=== PATIENT | female | born 1980 | race Caucasian/White ===

== ENCOUNTER 2019-02-24 17:16 | Emergency (ER) | payer MEDICAID, OTHER ==
[~2019-02-24] VITALS: Ht 172.7 cm; Wt 81.6 kg
[~2019-02-24 17:16] MED LIST: CYCLOBENZAPRINE10 MG ORAL; IBUPROFEN600 MG ORAL; NORCO 5-325 TA1 EACH ORAL; PENICILLIN V P500 MG ORAL
[2019-02-24] MEDS ORDERED: XANAX2 MG ORAL (17:24)
[2019-02-24 17:30] VITALS: BP 128/76
--- NOTE | 2019-02-24 17:30 | NUR ---
ED Nurse Note: pt walked in to ED due to lower abdominal pain with vaginal bleeding for 7 days. per pt, needs to change regular pad every couple hrs. pt seen by planned parentshood and referred to ED due to they can not find any cause. AAO x4. respirations even and non-labored noted. skin warm to touch. no open wound noted. ambulatory with steady gait. will wait for the result.
--- NOTE | 2019-02-24 17:37 | Emergency Room Report ---
History of Present Illness General Chief Complaint: Pelvic Pain Source: Patient, Medical Record Present Illness HPI 38-year-old female presents to the emergency department complaining of 10 out of 10 in severity uterine cramping with vaginal bleeding 7 days. Patient also reports some right adnexal tenderness as well. Patient reports she has been having several loose bowel movements. Patient states she has IUD in place which she states is the Mirena and it was placed in 2013. Patient states that she does not have her menses due to IUD. Patient reports multiple previous pregnancies but only one delivery in the past. Patient denies history of STDs. Patient denies rashes or genital lesions she denies vaginal discharge other than bleeding. Patient states that she is sexually active and has unprotected intercourse she states that lately she has been having a lot of tenderness with intercourse. Patient denies fevers or chills nausea vomiting urinary frequency , urgency or hematuria. Allergies: Coded Allergies: SULFAMETHOXAZOLE (Unverified Allergy, Unknown, rash, 04/30/14) TRIMETHOPRIM (Unverified Allergy, Unknown, rash, 04/30/14) Patient History Past Medical History: see triage record Past Surgical History: none Pertinent Family History: none Last Menstrual Period: 02/17/19 Now: No Reviewed Nursing Documentation: PMH: Agreed; PSxH: Agreed Nursing Documentation-PMH Past Medical History: No History, Except For Review of Systems All Other Systems: negative except mentioned in HPI Physical Exam Vital Signs Date Time Temp Pulse Resp B/P (MAP) Pulse Ox O2 Delivery O2 Flow Rate FiO2 02/24/19 17:19 97.5 100 21 128/76 99 Room Air Sp02 EP Interpretation: reviewed, normal General Appearance: alert, GCS 15, non-toxic, moderate distress Head: normocephalic, atraumatic Eyes: bilateral eye normal inspection, bilateral eye PERRL ENT: hearing grossly normal, normal voice Neck: full range of motion Respiratory: chest non-tender, lungs clear, normal breath sounds, speaking full sentences Cardiovascular #1: regular rate, rhythm Gastrointestinal: normal bowel sounds, soft, no peritonitis, non-distended, no guarding, no hernia, tenderness - low midline abdomen, some left adnexal ttp. , other - NO RLQ Pain, TTP lower midline Genitourinary: normal inspection, no CVA tenderness, other - Right Adnexal TTP , some cervical tenderness. Musculoskeletal: back normal, gait/station normal, normal range of motion, non- tender Neurologic: alert, oriented x3, responsive, motor strength/tone normal, sensory intact, speech normal, grossly normal Psychiatric: judgement/insight normal Skin: normal color, no rash, warm/dry, well hydrated Lymphatic: no adenopathy Medical Decision Making PA Attestation Dr. Jones is my supervising Physician whom patient management has been discussed with. Diagnostic Impression: Primary Impression: Abnormal vaginal bleeding Additional Impressions: Abdominal pain Qualified Codes: R10.30 - Lower abdominal pain, unspecified UTI (urinary tract infection) Qualified Codes: N30.01 - Acute cystitis with hematuria Pelvic pain ER Course 38-year-old female presents to the emergency department complaining of 10 out of 10 in severity uterine cramping with vaginal bleeding 7 days. Patient also reports some right adnexal tenderness as well. Patient reports she has been having several loose bowel movements. Patient states she has IUD in place which she states is the Mirena and it was placed in 2013. Patient states that she does not have her menses due to IUD. Patient reports multiple previous pregnancies but only one delivery in the past. Patient denies history of STDs. Patient denies rashes or genital lesions she denies vaginal discharge other than bleeding. Patient states that she is sexually active and has unprotected intercourse she states that lately she has been having a lot of tenderness with intercourse. Patient denies fevers or chills nausea vomiting urinary frequency , urgency or hematuria. Ddx considered but are not limited to Diverticulitis, acute appy, ovarian torsion, ectopic , PID tubo-ovarian abscess, ovarian cyst. Vital signs: are WNL, pt. is afebrile H&PE are most consistent with possible ovarian cyst, however due to presentation will r/o torsion, ectopic, and stone. ORDERS: -CBC, CMP: unremarkable -UDS: positive for THC, Benzo's, and meth. -UA: positive for infection -- elevated inflammatory markers with mucus. -URINE HCG: negative -Pelvic US Complete: left ovarian cyst, some mild free fluid -- Per official radiology report- Please see report for specific details. -CT Abdomen/ Pelvis with contrast: ED INTERVENTIONS: - 20mg Toradol IV - 5mg [place] PO --as workup here in the emergency department was for the most part benign due to significant tenderness and history of unprotected intercourse with pain during intercourse we'll treat this patient for suspected PID. CURES REPORT: multiple recent fills for benzo's by [facility] ED provider in excessive quantities that are not customarily rx'd in the ED setting. according to our records pt. has not been to this facility since 2015. ED Physician Dr. Scott was contacted regarding suspicious prescriptions. This pt. was not rx'd the medications for which she filled on 02/07/19, and 01/14/19. [employer] was contacted regarding fraudulent prescriptions. This pt. admitted in triage to be currently rx'd xanax. -I do not identify an emergent condition at this time. With current presentation , pt. is stable for close outpatient follow up and conservative treatment. D/ w pt. to return promptly to ED with worsening or new symptoms.- Pt. verbalizes' understanding and agreement with proposed treatment plan.proposed treatment plan. DISCHARGE: At this time pt. is stable for d/c to home. Will provide printed patient care instructions, and any necessary prescriptions. Care plan and follow up instructions have been discussed with the patient prior to discharge. Labs Test 02/24/19 17:51 White Blood Count 14.7 K/UL (4.8-10.8) Red Blood Count 3.76 M/UL (4.20-5.40) Hemoglobin 11.1 G/DL (12.0-16.0) Hematocrit 33.4 % (37.0-47.0) Mean Corpuscular Volume 89 FL (80-99) Mean Corpuscular Hemoglobin 29.5 PG (27.0-31.0) Mean Corpuscular Hemoglobin Concent 33.3 G/DL (32.0-36.0) Red Cell Distribution Width 11.2 % (11.6-14.8) Platelet Count 334 K/UL (150-450) Mean Platelet Volume 4.3 FL (6.5-10.1) Neutrophils (%) (Auto) 73.9 % (45.0-75.0) Lymphocytes (%) (Auto) 15.8 % (20.0-45.0) Monocytes (%) (Auto) 8.1 % (1.0-10.0) Eosinophils (%) (Auto) 1.5 % (0.0-3.0) Basophils (%) (Auto) 0.6 % (0.0-2.0) Urine Color Yellow Urine Appearance Slightly cloudy Urine pH 5 (4.5-8.0) Urine Specific [place] 1.020 (1.005-1.035) Urine Protein 1+ (NEGATIVE) Urine Glucose (UA) Negative (NEGATIVE) Urine Ketones 1+ (NEGATIVE) Urine Blood 5+ (NEGATIVE) Urine Nitrite Negative (NEGATIVE) Urine Bilirubin Negative (NEGATIVE) Urine Urobilinogen 1 MG/DL (0.0-1.0) Urine Leukocyte Esterase 3+ (NEGATIVE) Urine RBC 10-15 /HPF (0 - 2) Urine WBC 10-15 /HPF (0 - 2) Urine Squamous Epithelial Cells Few /LPF (NONE/OCC) Urine Bacteria Few /HPF (NONE) Urine Mucus Moderate /LPF (NONE/OCC) Urine HCG, Qualitative Negative (NEGATIVE) Sodium Level 136 MMOL/L (136-145) Potassium Level 3.7 MMOL/L (3.5-5.1) Chloride Level 100 MMOL/L (98-107) Carbon Dioxide Level 24 MMOL/L (21-32) Anion Gap 12 mmol/L (5-15) Blood Urea Nitrogen 12 mg/dL (7-18) Creatinine 0.7 MG/DL (0.55-1.30) Estimat Glomerular Filtration Rate > 60 mL/min (>60) Glucose Level 118 MG/DL (74-106) Calcium Level 9.3 MG/DL (8.5-10.1) Total Bilirubin 0.3 MG/DL (0.2-1.0) Aspartate Amino Transf (AST/SGOT) 14 U/L (15-37) Alanine Aminotransferase (ALT/SGPT) 22 U/L (12-78) Alkaline Phosphatase 79 U/L (46-116) Total Protein 7.6 G/DL (6.4-8.2) Albumin 3.0 G/DL (3.4-5.0) Globulin 4.6 g/dL Albumin/Globulin Ratio 0.7 (1.0-2.7) Urine Opiates Screen Negative (NEGATIVE) Urine Barbiturates Screen Negative (NEGATIVE) Phencyclidine (PCP) Screen Negative (NEGATIVE) Urine Amphetamines Screen Positive (NEGATIVE) Urine Benzodiazepines Screen Positive (NEGATIVE) Urine Cocaine Screen Negative (NEGATIVE) Urine Marijuana (THC) Screen Positive (NEGATIVE) CT/MRI/US Diagnostic Results CT/MRI/US Diagnostic Results #1: Imaging Test Ordered: CT ABDOMEN and PELVIS W. CONTRAST Impression IUD within the uterus no acute process and the solid organs left adrenal nodule measuring 9 mm, left ovarian hemorrhagic cyst 3.3 cm and a normal appendix" Per official radiology report- Please see report for specific details. CT/MRI/US Diagnostic Results #2: Imaging Test Ordered: PELVIC US Impression 3.2 cm left ovarian cyst with some free fluid noted. --Per official radiology report- Please see report for specific details. Last Vital Signs Date Time Temp Pulse Resp B/P (MAP) Pulse Ox O2 Delivery O2 Flow Rate FiO2 02/24/19 17:19 97.5 100 21 128/76 99 Room Air Disposition: HOME, SELF-CARE Condition: Stable Scripts Ibuprofen* (MOTRIN*) 600 Mg Tablet 600 MG ORAL THREE TIMES A DAY, #30 TAB 0 Refills Prov: Regina Bond 02/24/19 Nitrofurantoin Monohyd/M-Cryst* (MACROBID 100 MG*) 100 Mg Capsule 100 MG ORAL EVERY 12 HOURS for 5 Days, #10 CAP Prov: Regina Bond 02/24/19 Doxycycline Hyclate* (VIBRAMYCIN*) 100 Mg Capsule 100 MG ORAL EVERY 12 HOURS for 14 Days, #28 CAP 0 Refills Prov: Regina Bond 02/24/19 Regina Bond Feb 24, 2019 17:37
[2019-02-24] MEDS ORDERED: Ketorolac 30mg Inj IV ONE (18:00)
[2019-02-24 18:07] LABS: APPEARANCE,URINE SLIGHTLY CLOUDY; BILIRUBIN, URINE NEGATIVE (NEGATIVE); GLUCOSE, URINE (UA) NEGATIVE (NEGATIVE); KETONES,URINE 1+ (NEGATIVE); LEUKOCYTE ESTERASE ,URINE 3+ (NEGATIVE); NITRITE,URINE NEGATIVE (NEGATIVE); PH,URINE 5 (4.5-8.0); PROTEIN,URINE 1+ (NEGATIVE); UROBILINOGEN,URINE 1 MG/DL (0.0-1.0)
[2019-02-24 18:10] LABS: BASOPHILS % (AUTO) 0.6 % (0.0-2.0); EOSINOPHILS % (AUTO) 1.5 % (0.0-3.0); HEMATOCRIT 33.4 % (37.0-47.0); HEMOGLOBIN 11.1 G/DL (12.0-16.0); LYMPHOCYTES % (AUTO) 15.8 % (20.0-45.0); MEAN CORPUSCULAR VOLUME 89 FL (80-99); MONOCYTES % (AUTO) 8.1 % (1.0-10.0); NEUTROPHILS % (AUTO) 73.9 % (45.0-75.0); PLATELET COUNT 334 K/UL (150-450); RED BLOOD COUNT 3.76 M/UL (4.20-5.40); RED CELL DISTRIBUTION WIDTH 11.2 % (11.6-14.8); WHITE BLOOD COUNT 14.7 K/UL (4.8-10.8)
[2019-02-24 18:12] LABS: COLOR,URINE YELLOW
[2019-02-24 18:28] LABS: ANION GAP 12 mmol/L (5-15); BLOOD UREA NITROGEN 12 mg/dL (7-18); CALCIUM 9.3 MG/DL (8.5-10.1); CARBON DIOXIDE 24 MMOL/L (21-32); CHLORIDE 100 MMOL/L (98-107); CREATININE 0.7 MG/DL (0.55-1.30); POTASSIUM 3.7 MMOL/L (3.5-5.1); SODIUM 136 MMOL/L (136-145)
[2019-02-24 18:33] LABS: ALANINE AMINOTRANSFERASE 22 U/L (12-78); ALBUMIN/GLOBULIN RATIO 0.7 (1.0-2.7); ALKALINE PHOSPHATASE 79 U/L (46-116); ASPARTATE AMINO TRANSFERASE 14 U/L (15-37); BILIRUBIN,TOTAL 0.3 MG/DL (0.2-1.0)
--- NOTE | 2019-02-24 18:33 | NUR ---
ED Nurse Note: PT went down for US.
--- NOTE | 2019-02-24 19:00 | NUR ---
HAND-OFF: Report given to Romain Triplett RN.
--- NOTE | 2019-02-24 19:00 | NUR ---
ED Nurse Note: RECEIVED REPORT FROM ELIZABETH JACKSON. PATIENT DOWN IN US.
--- NOTE | 2019-02-24 19:44 | NUR ---
ED Nurse Note: PT BACK FROM US. AO4. NAD. VSS
[2019-02-24] MEDS ORDERED: Isovue-300 100ml vial INJ PRN (20:00)
--- NOTE | 2019-02-24 21:20 | NUR ---
ED Nurse Note: Spoke with [employer] Manager [phone] - will send a unit out.
--- NOTE | 2019-02-24 21:30 | NUR ---
ED Nurse Note: [employer] Officer Mounika ([id number]) speaking with ALMAS Tapia.
[2019-02-24] MEDS ORDERED: VIBRAMYCIN100 MG ORAL (22:00)
[2019-02-24] MEDS ORDERED: NITROFURANTOIN100 M2 ORAL (22:00)
[2019-02-24] MEDS ORDERED: IBUPROFEN600 MG ORAL (22:00)
[2019-02-24] MEDS ORDERED: Lidocaine 1% MPF 10mg/ml 5ml INJ ONE (22:00)
[2019-02-24 23:00] VITALS: BP 128/76
--- NOTE | 2019-02-24 23:00 | NUR ---
ER DISCHARGE NOTE: Patient is cleared to be discharged per ERMD, pt is aox4, on room air, with stable vital signs. pt was given dc and prescription instructions, pt was able to verbalize understanding, pt id band and iv site removed without complications. pt is able to ambulate with steady gait. pt took all belongings.
--- NOTE | 2019-02-25 10:16 | Diagnostic Imaging Report ---
Clinical Indication: Pain, uterine cramping, vaginal bleeding x7 days Technique: No oral contrast utilized, per emergency room physician request IV administration nonionic contrast. Venous phase spiral acquisition obtained through the abdomen and pelvis. Multiplanar reconstructions were generated. Total dose length product 779.27 mGycm. CTDIvol(s) 15.03 mGy. Dose reduction achieved using automated exposure control Comparison: none. Reference made to pelvic ultrasound performed immediately prior Findings: The appendix is normal. There is suggestion of very slight inflammation of the right lower quadrant fat and possible mild wall thickening of the distal ileum. No evidence of diverticulosis. There is some wall thickening of the mid sigmoid colon as well as some inflammation of the perisigmoid fat. There is trace free pelvic fluid. No free or loculated intraperitoneal gas. There is a tiny fat-containing umbilical hernia. Distal esophagus, stomach, duodenum are unremarkable. The gallbladder is nondistended. The bile ducts are normal in caliber. The pancreas, spleen, adrenals, kidneys are unremarkable. No retroperitoneal or mesenteric mass or adenopathy. The uterus contains an intrauterine device in good position. There is a 3.2 cm cyst in the left ovary, also described on recent sonogram. The right ovary is demonstrates what appears to be a collapsed corpus luteum.. The included lung bases are clear. The bones demonstrate minimal degenerative spondylosis changes. Impression: Possible collapsed right ovarian corpus luteum Left ovarian cyst, corresponding to hemorrhagic cyst described on recent sonogram Small amount of free pelvic fluid, presumably related to the above Slight inflammatory change of the right lower quadrant fat, could be related to the above findings, but there is equivocal wall thickening of the small bowel and mild enteritis changes are also possible. Equivocal wall thickening and sigmoid colon is probably due to nondistention but focal colitis possible Intrauterine device This agrees with the preliminary interpretation provided overnight by [employer] teleradiology service, with minor variation. The CT scanner at [facility] is accredited by the [employer] and the scans are performed using protocols designed to limit radiation exposure to as low as reasonably achievable to attain images of sufficient resolution adequate for diagnostic evaluation.
--- NOTE | 2019-02-25 12:49 | Diagnostic Imaging Report ---
Indication: Right adnexal pain, negative test Technique: Transabdominal and transvaginal images. Doppler interrogation of the bilateral ovaries Comparison: none Findings: Uterus measures 8.5 cm length by 3.6 cm AP. Endometrium measures 12 mm thick. There is an intrauterine device in the appropriate position. No myometrial abnormality. Right ovary measures 3.5 cm in length. Left ovary measures 5.2 cm in length. Left ovary demonstrates a 3.3 cm cyst with low level internal echoes, likely hemorrhagic, cyst contours appearing slightly collapsed. There is a small amount of free cul-de-sac fluid Impression: Hemorrhagic left ovarian cyst. Intrauterine device Trace free pelvic fluid, presumably physiologic This agrees with the preliminary interpretation provided overnight by [employer] teleradiology service.
== END 2019-02-24 23:00 | disposition home or self-care (01) ==
LOC: EMR 19:17
DX: N93.9 Abnormal uterine and vaginal bleeding, unspecified (principal); R10.30 Lower abdominal pain, unspecified; N30.01 Acute cystitis with hematuria; R10.2 Pelvic and perineal pain; Z88.2 Allergy status to sulfonamides; Z88.8 Allergy status to other drugs, medicaments and biological substances; Z97.5 Presence of (intrauterine) contraceptive device; N83.202 Unspecified ovarian cyst, left side
CPT/HCPCS: 36415; 74177; 76830; 76856; 80053; 80307; 81003; 81025; 85025; 87086; 96372; 96374; 96375; 99284; J0696; J1885; Q9967

== ENCOUNTER 2020-03-13 18:28 | Emergency (ER) | payer MEDICAID, OTHER ==
[~2020-03-13] VITALS: Ht 172.7 cm; Wt 81.6 kg
[~2020-03-13 18:28] MED LIST changes: +NITROFURANTOIN100 M2 ORAL; +VIBRAMYCIN100 MG ORAL; +XANAX2 MG ORAL
[2020-03-13 18:37] VITALS: BP 122/74
--- NOTE | 2020-03-13 18:47 | NUR ---
ED Nurse Note: Pt from home came in due to swelling and redness on her left hand since yesterday. Noted a russ/bite on left hand. AAO x4 and ambulatory.
--- NOTE | 2020-03-13 18:53 | Emergency Room Report ---
History of Present Illness General Chief Complaint: Skin Rash/Abscess Source: Patient Present Illness HPI 39-year-old female with no signal past medical history here complaining of 1 day of painful wound left index finger. Patient reports that she woke up like that however developed expressing having a lot of insects in her house recently. Patient appears to have erythematous somewhat infected appears to be a spider bite left index finger. Has range of motion. Denies any numbness or tingling. Denies any pain radiation. Is afebrile, denies any nausea vomiting, chest pain, shortness of breath. Has not taken medication for symptom relief. Reports that every time that she takes any antibiotic she feels nauseated acid reflux. Denies any generalized abdominal pain, diarrhea at this time. Allergies: Coded Allergies: SULFAMETHOXAZOLE (Unverified Allergy, Unknown, rash, 04/30/14) TRIMETHOPRIM (Unverified Allergy, Unknown, rash, 04/30/14) COVID-19 Screening Contact w/high risk pt: No Recent Travel to affected area: No Experienced COVID-19 symptoms?: No Patient History Past Medical History: see triage record Past Surgical History: none Pertinent Family History: none Social History: Reports: smoking Last Menstrual Period: IUD Now: No Immunizations: UTD Reviewed Nursing Documentation: PMH: Agreed; PSxH: Agreed Nursing Documentation-PMH Past Medical History: No History, Except For Review of Systems All Other Systems: negative except mentioned in HPI Physical Exam Vital Signs Date Time Temp Pulse Resp B/P (MAP) Pulse Ox O2 Delivery O2 Flow Rate FiO2 03/13/20 18:37 98.2 97 18 122/74 (90) 96 Room Air Sp02 EP Interpretation: reviewed, normal General Appearance: no apparent distress, alert, GCS 15, non-toxic Head: normocephalic, atraumatic ENT: hearing grossly normal, normal pharynx, no angioedema, normal voice Neck: full range of motion, supple/symm/no masses Respiratory: chest non-tender, lungs clear, normal breath sounds, speaking full sentences Cardiovascular #1: regular rate, rhythm, no edema Cardiovascular #2: 2+ radial (R), 2+ radial (L) Gastrointestinal: normal bowel sounds, non tender, soft, non-distended, no guarding, no rebound Rectal: deferred Musculoskeletal: back normal Neurologic: alert, motor strength/tone normal, oriented x3, sensory intact, responsive, speech normal Psychiatric: judgement/insight normal, memory normal, mood/affect normal, no suicidal/homicidal ideation Skin: other - Infected insect bite left index finger Lymphatic: no adenopathy Medical Decision Making PA Attestation All diagnoses and treatment plans were reviewed and discussed with my supervising physician Dr. Santana Diagnostic Impression: Primary Impression: Infected insect bite Additional Impression: Gastritis ER Course 39-year-old female with no signal past medical history here complaining of 1 day of painful wound left index finger. Patient reports that she woke up like that however developed expressing having a lot of insects in her house recently. Patient appears to have erythematous somewhat infected appears to be a spider bite left index finger. Has range of motion. Denies any numbness or tingling. Denies any pain radiation. Is afebrile, denies any nausea vomiting, chest pain, shortness of breath. Has not taken medication for symptom relief. Reports that every time that she takes any antibiotic she feels nauseated acid reflux. Denies any generalized abdominal pain, diarrhea at this time. Ddx considered but are not limited to : Cellulitis, superficial infection, abscess Vital signs: are WNL, pt. is afebrile H&PE are most consistent with: Infected insect bite, gastritis ORDERS: Augmentin, Tylenol, Zofran, omeprazole ED INTERVENTIONS: None required at this time. DISCHARGE: At this time pt. is stable for d/c to home. Will provide printed patient care instructions, and any necessary prescriptions. Care plan and follow up instructions have been discussed with the patient prior to discharge. Advised her to take Zofran omeprazole 30 minutes prior to taking antibiotic. Take medication as directed, if worsening symptoms return to the emergency room Last Vital Signs Date Time Temp Pulse Resp B/P (MAP) Pulse Ox O2 Delivery O2 Flow Rate FiO2 03/13/20 18:37 98.2 97 18 122/74 96 Room Air Disposition: HOME, SELF-CARE Condition: Stable Scripts Acetaminophen* (TYLENOL EXTRA STRENGTH*) 500 Mg Tablet 500 MG ORAL Q8H PRN for Prn Headache/Temp > 101, #30 TAB 0 Refills Prov: Germaine Merino 03/13/20 Omeprazole (OMEPRAZOLE) 20 Mg Tablet. 20 MG ORAL DAILY, #20 TAB Prov: Germaine Merino 03/13/20 Ondansetron (Zofran) 4 Mg Tablet 4 MG ORAL Q6H PRN for Nausea & Vomiting, #14 TAB Prov: Germaine Merino 03/13/20 Amoxicillin/Potassium Clav 875-125* (AUGMENTIN 875-125 TABLET*) 1 Each Tablet 1 TAB ORAL TWICE A DAY for 7 Days, #14 TAB Prov: Germaine Merino 03/13/20 Patient Instructions: Gastritis, Adult, [id number], Insect Bite, [id number] Additional Instructions: Take medication as directed, follow with primary doctor, if worsening symptoms return to the emergency room Germaine Merino March 13, 2020 18:53
[2020-03-13] MEDS ORDERED: TYLENOL EXTRA500 MG ORAL (18:55)
[2020-03-13] MEDS ORDERED: AUGMENTIN 875-1 EAC1 ORAL (18:55)
[2020-03-13] MEDS ORDERED: ZOFRAN4 M1 ORAL (18:55)
[2020-03-13] MEDS ORDERED: OMEPRAZOLE20 M3 ORAL (18:55)
--- NOTE | 2020-03-13 19:15 | NUR ---
ER DISCHARGE NOTE: Patient is cleared to be discharged per ERMD, pt is aox4, on room air, with stable vital signs. pt was given dc and prescription instructions, pt was able to verbalize understanding, pt id band removed. pt is able to ambulate with steady gait. pt took all belongings.
== END 2020-03-13 19:16 | disposition home or self-care (01) ==
LOC: EMR 18:45
DX: S61.251A Open bite of left index finger without damage to nail, initial encounter (principal); L08.9 Local infection of the skin and subcutaneous tissue, unspecified; W57.XXXA Bitten or stung by nonvenomous insect and other nonvenomous arthropods, initial encounter; Y92.9 Unspecified place or not applicable; K29.70 Gastritis, unspecified, without bleeding; F17.200 Nicotine dependence, unspecified, uncomplicated
CPT/HCPCS: 99282